=== PATIENT | male | born 1960 | race Caucasian/White ===

== ENCOUNTER 2021-03-27 20:51 | Emergency (ER) | payer MEDICARE, OTHER ==
--- NOTE | 2021-03-27 21:21 | EDM.PDOC ---
ED HPI GENERAL MEDICAL PROBLEM - General Stated Complaint: BLOOD PRESSURE 215/110 Time Seen by Provider: 03/27/21 21:15 Source of Information: Reports: Patient History Limitations: Reports: No Limitations - History of Present Illness INITIAL COMMENTS - FREE TEXT/NARRATIVE: 60-year-old male with mild, dull headache that has seemed to wax and wane through the day and was mostly left-sided and has varied between 5-6/10 at its worst and a 3-4/10 at present. He also has had some mild nausea and earlier today noted some mild blurry vision. He didn't really think much evidence that time and was with his doing some driving. Tonight just prior to getting ready for bed he used his pulse oximeter to check his oxygen level and he noted that his pulse was in the 40s to 50 range. To attempt to check his blood pressure and his blood pressure was 215/105 and remained elevated in this range over the next 1-1/2 hours and that caused him to present to the emergency department for evaluation. He was just seen in clinic last week and his blood pressure was elevated at that time and his primary provider, Dr. Carter, increased his lisinopril to 40 mg a day. In addition, the patient has had nasal congestion and sinus congestion and purulent nasal discharge associated with a cough and his provider placed him on prednisone for a possible COPD exacerbation. The patient has had no chest pain or shortness of breath today. He has had no weakness. There has been no dizziness other than some mild dizziness that he felt when walking between rooms here in the emergency department tonight. He is having no problems speaking. He has no problems swallowing. He has been eating and drinking per his norm. He presents to the emergency department via private vehicle with his . There are no other associated si gns or symptoms. There are no other modifying factors. Onset: Today (Headache symptoms noted all through the day. 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 (see below) (Nothing.) Headache Pain Score (Numeric/FACES): 3 - Related Data Allergies Allergy/AdvReac Type Severity Reaction Status Date / Time No Known Allergies Allergy Verified 11/13/16 17:00 Home Meds: Home Meds Albuterol Sulfate [Albuterol Sulfate HFA] 2 puff IH Q4H PRN 06/12/13 [History] Fluticasone Furoate [Veramyst] 1 spray SHANIA DAILY PRN 06/12/13 [History] Lisinopril 40 mg PO DAILY 06/12/13 [History] Simvastatin [Zocor] 20 mg PO BEDTIME 06/12/13 [History] Tiotropium [Spiriva HandiHaler] 18 mcg INH DAILY 06/12/13 [History] hydroCHLOROthiazide [Hydrochlorothiazide] 25 mg PO DAILY 06/12/13 [History] Budesonide/Formoterol [Symbicort 160-4.5 MCG] 2 puff INH DAILY 04/24/14 [History] Azithromycin [Zithromax] 250 mg PO DAILY #4 tab 03/27/21 [Rx] Clopidogrel [Plavix] 75 mg PO DAILY 03/27/21 [History] Famotidine 40 mg PO DAILY 03/27/21 [History] Potassium Chloride 10 meq PO DAILY 03/27/21 [History] predniSONE [Prednisone] 40 mg PO DAILY 03/27/21 [History] Past Medical History Cardiovascular History: Reports: High Cholesterol, Hypertension, [place], Stents Respiratory History: Reports: Sleep Apnea (He uses BiPAP and supplemental oxygen at night.) Musculoskeletal History: Reports: Back Pain, Chronic Endocrine/Metabolic History: Reports: Other (See Below) (Prediabetic. On no medications.) - Infectious Disease History Infectious Disease History: Reports: Chicken Pox - Past Surgical History Cardiovascular Surgical History: Reports: Coronary Artery Stent Musculoskeletal Surgical History: Reports: Other (See Below) Social & Family History - Tobacco Use Tobacco Use Status *Q: Unknown Ever Used Tobacco (Nonsmoker.) - Caffeine Use Caffeine Use: Reports: Coffee - Living Situation & Occupation Living situation: Reports: Social History Comment: Here with his . ED ROS GENERAL - Review of Systems Review Of Systems: See Below Constitutional: Denies: Fever, Chills HEENT: Reports: Sinus Problem, Vision Change (Earlier today.), Other (Purulent nasal discharge) Respiratory: Reports: Cough. Denies: Shortness of Breath, Hemoptysis Cardiovascular: Denies: Chest Pain, Lightheadedness Endocrine: Denies: Fatigue, Polydypsia GI/Abdominal: Reports: Nausea (Intermittent. Mild.). Denies: Vomiting : Denies: Dysuria, Hematuria Musculoskeletal: Denies: Arm Pain, Leg Pain Skin: Denies: Diaphoresis, Rash Neurological: Reports: Dizziness (Mild, transient dizziness earlier.), Headache. Denies: Trouble Speaking, Weakness Psychiatric: Denies: Anxiety Hematologic/Lymphatic: Denies: Easy Bleeding, Easy Bruising ED EXAM, GENERAL - Physical Exam Exam: See Below Exam Limited By: No Limitations General Appearance: Alert, WD/WN, No Apparent Distress Eye Exam: Bilateral Eye: EOMI, Normal Inspection, PERRL Ears: Normal External Exam, Hearing Grossly Normal Ear Exam: Bilateral Ear: Auricle Normal Nose: Normal Inspection, Normal Mucosa, No Blood Throat/Mouth: Normal Oropharynx, Normal Voice, No Airway Compromise Head: Atraumatic, Normocephalic Neck: Normal Inspection, Supple, Non-Tender, Full Range of Motion Respiratory/Chest: No Respiratory Distress, Lungs Clear, Normal Breath Sounds, No Accessory Muscle Use, Chest Non-Tender Cardiovascular: Normal Peripheral Pulses, Regular Rate, Rhythm, No Murmur Peripheral Pulses: 2+: Radial (L), Radial (R), Dorsalis Pedis (L), Dorsalis Pedis (R) GI/Abdominal: Normal Bowel Sounds, Soft, Non-Tender, No Mass Back Exam: Normal Inspection Extremities: Normal Inspection, Normal Range of Motion, Non-Tender, No Pedal Edema, Normal Capillary Refill Neurological: Alert, Oriented, CN II-XII Intact, Normal Cognition, No Pramod r/Sensory Deficits Psychiatric: Normal Affect, Normal Mood Skin Exam: Warm, Dry, Intact, Normal Color, No Rash #1 Interpretation EKG Date: 03/27/21 Time: 21:23 Rhythm: NSR (Sinus bradycardia.) Rate (Beats/Min): 45 [place]: Normal P-Wave: Present QRS: Normal ST-T: Normal QT: Normal (Normal QTc.) Comparison: NA - No Prior EKG Course - Vital Signs Last Recorded V/S: Last Vital Signs Temp 36.5 C 03/27/21 20:55 Pulse 48 L 03/27/21 20:55 Resp 18 03/27/21 20:55 BP 212/113 H 03/27/21 20:55 Pulse Ox 98 03/27/21 20:55 - Orders/Labs/Meds Orders: Active Orders 24 hr Category Date Time Status EKG Documentation Completion [RC] ASDIRECTED Care 03/27/21 21:21 Active Chest 1V Frontal [CR] Stat Exams 03/27/21 21:21 Taken Head wo Cont [CT] Stat Exams 03/27/21 21:53 Ordered EKG 12 Lead [EK] Routine Ther 03/27/21 21:21 Ordered Labs: Laboratory Tests 03/27/21 03/27/21 03/27/21 Range/Units 21:35 21:35 21:35 WBC 7.9 (3.2-10.1) x10-3/uL RBC 3.86 L (3.90-5.90) x10(6)uL Hgb 12.0 L (12.9-17.7) g/dL Hct 35.0 L (38.3-50.1) % MCV 90.7 (80.8-98.7) fL MCH 31.0 (27.0-33.3) pg MCHC 34.2 (28.7-35.3) g/dL RDW 14.2 (12.4-15.0) % Plt Count 251 (117-477) x10(3)uL MPV 6.9 (6.7-11.0) fL Neut % (Auto) 64.3 (40.3-71.8) % Lymph % (Auto) 27.7 (15.8-45.3) % [place] % (Auto) 7.1 (5.5-15.2) % Eos % (Auto) 0.4 (0.1-6.8) % Baso % (Auto) 0.5 (0.3-3.8) % Neut # (Auto) 5.1 (1.7-6.9) x10-3/uL Lymph # (Auto) 2.2 (0.5-4.5) x10-3/uL [place] # (Auto) 0.6 (0.0-1.2) x10-3/uL Eos # (Auto) 0.0 (0.0-0.6) x10-3/uL Baso # (Auto) 0.0 (0.0-0.3) x10-3/uL Sodium 139 (135-145) mmol/L Potassium 3.3 L (3.5-5.3) mmol/L Chloride 100 (100-110) mmol/L Carbon Dioxide 29 (21-32) mmol/L BUN 18 (7-18) mg/dL Creatinine 0.7 (0.70-1.30) mg/dL Est Cr Clr Drug Dosing TNP Estimated GFR (MDRD) > 60 (>60) BUN/Creatinine Ratio 25.7 H (9-20) Glucose 92 (80-116) mg/dL Calcium 8.9 (8.6-10.2) mg/dL Magnesium 2.2 (1.8-2.5) mg/dL Total Bilirubin 0.5 (0.1-1.3) mg/dL AST 19 (5-25) IU/L ALT 27 (12-36) U/L Alkaline Phosphatase 47 L (56-112) IU/L Troponin I 7.2 (4.0-60.3) pg/mL Total Protein 6.7 (6.0-8.0) g/dL Albumin 3.5 (3.5-5.2) g/dL Globulin 3.2 g/dL Albumin/Globulin Ratio 1.1 Urine Color (YELLOW) Urine Appearance (CLEAR) Urine pH (5.0-6.5) Ur Specific [place] (1.010-1.025) Urine Protein (NEGATIVE) mg/dL Urine Glucose (UA) (NORMAL) mg/dL Urine Ketones (NEGATIVE) mg/dL Urine Occult Blood (NEGATIVE) Urine Nitrite (NEGATIVE) Urine Bilirubin (NEGATIVE) Urine Urobilinogen (NEGATIVE) mg/dL Ur Leukocyte Esterase (NEGATIVE) Urine RBC (0-5) Urine WBC (0-5) Ur Squamous Epith Cells (NS,R,O) Urine Bacteria (NS) 03/27/21 Range/Units 21:54 WBC (3.2-10.1) x10-3/uL RBC (3.90-5.90) x10(6)uL Hgb (12.9-17.7) g/dL Hct (38.3-50.1) % MCV (80.8-98.7) fL MCH (27.0-33.3) pg MCHC (28.7-35.3) g/dL RDW (12.4-15.0) % Plt Count (117-477) x10(3)uL MPV (6.7-11.0) fL Neut % (Auto) (40.3-71.8) % Lymph % (Auto) (15.8-45.3) % [place] % (Auto) (5.5-15.2) % Eos % (Auto) (0.1-6.8) % Baso % (Auto) (0.3-3.8) % Neut # (Auto) (1.7-6.9) x10-3/uL Lymph # (Auto) (0.5-4.5) x10-3/uL [place] # (Auto) (0.0-1.2) x10-3/uL Eos # (Auto) (0.0-0.6) x10-3/uL Baso # (Auto) (0.0-0.3) x10-3/uL Sodium (135-145) mmol/L Potassium (3.5-5.3) mmol/L Chloride (100-110) mmol/L Carbon Dioxide (21-32) mmol/L BUN (7-18) mg/dL Creatinine (0.70-1.30) mg/dL Est Cr Clr Drug Dosing Estimated GFR (MDRD) (>60) BUN/Creatinine Ratio (9-20) Glucose (80-116) mg/dL Calcium (8.6-10.2) mg/dL Magnesium (1.8-2.5) mg/dL Total Bilirubin (0.1-1.3) mg/dL AST (5-25) IU/L ALT (12-36) U/L Alkaline Phosphatase (56-112) IU/L Troponin I (4.0-60.3) pg/mL Total Protein (6.0-8.0) g/dL Albumin (3.5-5.2) g/dL Globulin g/dL Albumin/Globulin Ratio Urine Color Yellow (YELLOW) Urine Appearance Clear (CLEAR) Urine pH 8.0 H (5.0-6.5) Ur Specific [place] 1.010 (1.010-1.025) Urine Protein Negative (NEGATIVE) mg/dL Urine Glucose (UA) Normal (NORMAL) mg/dL Urine Ketones Negative (NEGATIVE) mg/dL Urine Occult Blood Negative (NEGATIVE) Urine Nitrite Negative (NEGATIVE) Urine Bilirubin Negative (NEGATIVE) Urine Urobilinogen Normal (NEGATIVE) mg/dL Ur Leukocyte Esterase Negative (NEGATIVE) Urine RBC 0-5 (0-5) Urine WBC 0-5 (0-5) Ur Squamous Epith Cells Rare (NS,R,O) Urine Bacteria Rare H (NS) Meds: Medications Discontinued Medications Generic Name Dose Route Start Last Admin Trade Name Lynne PRN Reason Stop Dose Admin Azithromycin 500 mg 03/27/21 23:43 Azithromycin 500 Mg Tab PO 03/27/21 23:44 ONETIME ONE - Radiology Interpretation Free Text/Narrative:: Portable chest x-ray showed no acute disease. There was some evidence of COPD but nothing acute. This was per my read. CT scan of head showed stable appearance of brain with no signs of acute injury. There was new moderate left maxillary, ethmoid and frontal sinusitis and this was per the [facility] radiologist - Re-Assessments/Exams Free Text/Narrative Re-Assessment/Exam: 03/27/21 23:25: Patient's blood pressure remains in the 180/80-90 range. He still has a mild intermittent headache that comes and goes. He has no vision problems at present. He has no chest pain. He has no shortness of breath. All of his blood tests are reassuringly normal. His chest x-ray was normal. His EKG was normal except for bradycardia. The CT scan of his head showed stable appearance of the brain but there was moderate left maxillary, ethmoid and frontal sinusitis. The patient was placed on prednisone for a possible COPD exacerbation just 3 days ago. Symptoms at that time were also cleaned nasal congestion and purulent nasal discharge but he also had a cough. I feel that the prednisone could be causing him to have some elevated blood pressure. He does not appear to have anything supporting any hypertensive emergency at this point. I also did not feel that starting him on a new blood pressure medication at this time would be prudent. Did consider placing him on another blood pressure medication. However, I do not feel that a calcium channel elidia or a beta elidia would be prudent given his heart rate in the 40-50 range. Also I do not feel that Catapres or hydralazine eat good choices as well. I feel that he needs to have follow-up with his primary provider and review of his medications before this is done. I also offered admission to the hospital on an observation status for close cardiac monitoring and neuro checks. I discussed all of this with the patient and with his and they feel that they would want to go home at this point. I am going to have him stop the prednisone and I will place him on a Z-Demian to treat for the sinusitis. He is to continue his blood pressure medication as previous. He is to follow-up with Dr. Carter on Tuesday. Precautions and reasons for return to the emergency department were discussed with the patient and with his while the patient was in the emergency department and were detailed in the patient's discharge instructions. Departure - Departure Time of Disposition: 23:40 Disposition: Home, Self-Care 01 Condition: Good (Stable.) Clinical Impression: Hypertension, uncontrolled Sinusitis Qualifiers: Sinusitis location: unspecified location Chronicity: acute Recurrence: non- recurrent Qualified Code(s): J01.90 - Acute sinusitis, unspecified - Discharge Information Prescriptions: Azithromycin [Zithromax] 250 mg PO DAILY #4 tab Instructions: Sinusitis, Adult, [id number], Hypertension, Adult, [id number], Managing Your Hypertension Referrals: Jerman Carter MD [Primary Care Provider] - Forms: ED Department Discharge Additional Instructions: All of your blood tests were reassuringly normal. Your chest x-ray showed COPD but did not show anything of an acute nature. Your EKG showed a heart attack or any acute problem. The CT scan of your head showed no evidence of stroke or bleeding. There was evidence of left sided maxillary, ethmoid and frontal sinus infection. You should continue to take your blood pressure medication as directed by Dr. Carter. Stop the prednisone. Use Flonase nasal spray into both nostrils twice daily. Medication as prescribed (Zithromax). Increase your fluid intake. Back to the emergency department for persistent elevated blood pressure greater than 200/100, chest pain, worsening headache, vision problems, problems speaking, localized area of weakness or numbness, difficulty breathing, severe weakness or any other concerning signs or symptoms. You need to follow-up with Dr. Carter this 03/30/2021 Sepsis Event Note (ED) - Focused Exam Vital Signs: Vital Signs Temp Pulse Resp BP Pulse Ox 03/27/21 20:55 36.5 C 48 L 18 212/113 H 98 - My Orders Last 24 Hours: My Active Orders 03/27/21 21:21 EKG Documentation Completion [RC] ASDIRECTED Chest 1V Frontal [CR] Stat EKG 12 Lead [EK] Routine 03/27/21 21:53 Head wo Cont [CT] Stat - Assessment/Plan Last 24 Hours: My Active Orders 03/27/21 21:21 EKG Documentation Completion [RC] ASDIRECTED Chest 1V Frontal [CR] Stat EKG 12 Lead [EK] Routine 03/27/21 21:53 Head wo Cont [CT] Stat
[2021-03-27 22:01] VITALS: BP 212/113; PULSE 48
[2021-03-27] MEDS ORDERED: Azithromycin 500 MG Tab PO ONE (23:43)
--- NOTE | 2021-03-30 12:17 | CR ---
INDICATION: Elevated blood pressure. CHEST ONE VIEW: Portable AP upright view of the chest 03/27/21 was compared with 11/13/16 again revealing the heart to be normal in size and shape. The aorta is more tortuous than on the previous study with increased calcification in the arch. Overlying EKG leads are noted. A definite active infiltrate or effusion was not identified. Somewhat flattened diaphragm leads and hyperaeration raise question of COPD/correlate clinically. IMPRESSION: 1. No definite acute process. 2. ASD aorta. 3. Possible COPD - correlate clinically. MTDD
== END 2021-03-27 23:53 | disposition home or self-care (01) ==
LOC: FB.ED 20:51
DX: J01.90 Acute sinusitis, unspecified (principal); I10 Essential (primary) hypertension; E78.00 Pure hypercholesterolemia, unspecified; I25.2 Old myocardial infarction; Z79.02 Long term (current) use of antithrombotics/antiplatelets; Z79.899 Other long term (current) drug therapy; Z95.5 Presence of coronary angioplasty implant and graft
CPT/HCPCS: 36415; 70450; 71045; 80053; 81001; 83735; 84484; 85025; 93005; 99284-25; A9270-GY